=== PATIENT | male | born 1975 | race Native Hawaiian/Other Pacific Islander ===

== ENCOUNTER 2019-01-24 10:15 | Emergency (ER) | payer BC, OTHER ==
[2019-01-24 10:32] VITALS: BP 152/93; PULSE 65; RESP 16; TEMP 98.4
--- NOTE | 2019-01-24 11:57 | XR ---
EXAMINATION TYPE: XR finger LT DATE OF EXAM: 01/24/2019 COMPARISON: Left wrist x-ray November 16, 2014. HISTORY: Jamming injury with pain. TECHNIQUE: 3 views of left thumb are acquired. FINDINGS: There is no acute fracture or dislocation in the left thumb. Mild to moderate narrowing and spurring first interphalangeal joint is present. There is [id number] soft tissue swelling ove r the first metacarpal. IMPRESSION: As above.
--- NOTE | 2019-01-24 12:46 | ED ---
General Adult HPI - General Chief complaint: Extremity Injury, Upper Stated complaint: thumb injury Time Seen by Provider: 01/24/19 10:58 Source: patient, RN notes reviewed Mode of arrival: ambulatory Limitations: no limitations - History of Present Illness Initial comments: 43-year-old male presents to the emergency department for left thumb injury. Ba swain was diving for a softball when he injured his left thumb. States it is very painful to touch and move. Denies hitting his head. Denies any other injuries.Patient has no other complaints at this time including shortness of breath, chest pain, abdominal pain, nausea or vomiting, headache, or visual changes. - Related Data Home Medications Medication Instructions Recorded Confirmed amLODIPine BESYLATE [Norvasc] 10 mg PO DAILY 01/24/19 01/24/19 Allergies Allergy/AdvReac Type Severity Reaction Status Date / Time ceftriaxone [From Rocephin] Allergy Unknown Verified 01/24/19 11:01 Review of Systems ROS Statement: Those systems with pertinent positive or pertinent negative responses have been documented in the HPI. ROS Other: All systems not noted in ROS Statement are negative. Past Medical History Past Medical History: Hypertension History of Any Multi-Drug Resistant Organisms: None Reported Past Surgical History: Orthopedic Surgery Past Psychological History: No Psychological Hx Reported Smoking Status: Former smoker Past Alcohol Use History: None Reported Past Drug Use History: None Reported General Exam Limitations: no limitations General appearance: alert, in no apparent distress Head exam: Present: atraumatic, normocephalic, normal inspection Eye exam: Present: normal appearance, PERRL, EOMI. Absent: scleral icterus, conjunctival injection, periorbital swelling ENT exam: Present: normal exam, mucous membranes moist Neck exam: Present: normal inspection. Absent: tenderness, meningismus, lymphadenopathy Respiratory exam: Present: normal lung sounds bilaterally. Absent: respiratory distress, wheezes, rales, rhonchi, stridor Cardiovascular Exam: Present: regular rate, normal rhythm, normal heart sounds. Absent: systolic murmur, diastolic murmur, rubs, gallop, clicks Extremities exam: Present: tenderness (Significant point tenderness noted over the left MCP joint of the first digit), normal capillary refill (Refill less than 2 seconds in all digits including the first digits of the left hand, radial pulse 2+ and equal bilaterally), other (Sensation intact in the left first digit and all digits of the left hand). Absent: full ROM (does have some limited action and extension of the MCP joint of the left first digit but is able to flex extend abduct and adduction.), pedal edema, joint swelling, calf tenderness Neurological exam: Present: alert, oriented X3, CN II-XII intact Psychiatric exam: Present: normal affect, normal mood Course Vital Signs 01/24/19 10:30 Temperature 98.4 F Pulse Rate 65 Respiratory 16 Rate Blood Pressure 152/93 O2 Sat by Pulse 98 Oximetry Procedures - Orthopedic Splinting/Casting Injury #1 Side: left Upper Extremity Injury Location: hand Upper Extremity Immobilizer: thumb spica Additional Comments: Neurovascular status intact Medical Decision Making - Medical Decision Making 43-year-old male presents to the emergency department for a chief complaint of left thumb pain. Patient was diving for a ball when he injured his thumb. On exam patient does have tenderness noted over the IP joint of the left thumb which is significant. He is able to flex extend abduct and adductor his thumb. X-rays are negative however given patient's point tenderness she will be splinted in a thumb spica. Will follow up with orthopedics. He will return here if he has any worsening symptoms. Estrace therapy. Dx: Soft tissue injury versus occult fracture Disposition Clinical Impression: Pain of left thumb Disposition: HOME SELF-CARE Condition: Good Instructions (If sedation given, give patient instructions): Finger Sprain (ED) Additional Instructions: Please follow up with orthopedics for soft tissue injury versus occult fracture in 1-2 days. In the meantime take Motrin and Tylenol for pain. Ice the area. Do not get the splint wet. Follow-up with primary care. Return here to the emergency department if you have any worsening symptoms. Is patient prescribed a controlled substance at d/c from ED?: No Referrals: Garret Swanson MD [Primary Care Provider] - 1-2 days Time of Disposition: 12:44
== END 2019-01-24 13:01 | disposition home or self-care (01) ==
LOC: EC 10:15
DX: M79.645 Pain in left finger(s) (principal); I10 Essential (primary) hypertension; Z79.899 Other long term (current) drug therapy; Z88.1 Allergy status to other antibiotic agents; Z87.891 Personal history of nicotine dependence; X58.XXXA Exposure to other specified factors, initial encounter; Y93.64 Activity, baseball; Y92.320 Baseball field as the place of occurrence of the external cause
CPT/HCPCS: 29125; 99283